=== PATIENT | female | born 1995 | race Hispanic/Latino ===

== ENCOUNTER 2016-09-05 10:35 | Emergency (ER) | payer OTHER ==
[~2016-09-05] VITALS: Ht 157.5 cm; Wt 52.0 kg
[~2016-09-05 10:35] MED LIST: CIPRO; PRENATAL TABLE1 EAC3 PO; PRENATAL VITAM1 EAC3 PO; ROBITUSSIN100 MG/5 M PO; ZOFRAN ODT4 MG PO
[2016-09-05 11:33] LABS: HEMATOCRIT 38.4 % (36.0-46.0); MCH 26.6 PG (29.0-34.0); MCV 82.9 FL (83-99); MEAN PLAT.VOLUME 11.1 uM^3 (9.5-12.4); PLATELET COUNT 294 K/uL (156-360); RBC DIS.WIDTH-CV 12.8 % (11.8-14.6); RBC DIS.WIDTH-SD 38.6 % (39-53); RED BLOOD COUNT 4.63 M/uL (3.80-5.20); WHITE BLOOD COUNT 6.1 K/uL (4.1-10.2)
[2016-09-05 11:49] LABS: CHLORIDE 109 mEq/L (99-109); POTASSIUM 3.8 mEq/L (3.7-5.4); SODIUM 140 mEq/L (136-147)
[2016-09-05 11:51] LABS: GLUCOSE 67 mg/dL (70-99)
[2016-09-05 11:52] LABS: ANION GAP 8 MEQ/L (2-14)
[2016-09-05 11:53] LABS: TOTAL BILIRUBIN 0.5 mg/dL (0.0-1.0)
[2016-09-05 11:54] LABS: ADD MIUA? YES; BILIRUBIN NEGATIVE; BLOOD NEGATIVE; COLOR YELLOW ((YELLOW)); GLUCOSE (STRIP) NEGATIVE; KETONES NEGATIVE; LEUKOCYTES NEGATIVE; NITRITE NEGATIVE; PROTEIN (STRIP) NEGATIVE; SPECIFIC GRAVITY 1.009 (1.000-1.030); UROBILINOGEN 0.2 MG/DL (0.2-1.0)
[2016-09-05 11:55] LABS: ALKALINE PHOSPHATASE 83 IU/L (3-129); GFR ESTIMATE (CALCULATED) > 59 mL/min/
[2016-09-05 11:56] LABS: UREA NITROGEN (BUN) 11 mg/dL (9-23)
[2016-09-05 12:00] LABS: BACTERIA RARE /HPF; EPITHELIAL CELLS 2+ /HPF; MUCUS TRACE /LPF; RED BLOOD CELLS 0-5 /HPF (0-5); UCUL ADDED? NO; WHITE BLOOD CELLS 0-5 /HPF (0-5)
[2016-09-05 12:04] LABS: QUANTITATIVE HCG < 4.0 MIU/ML
[2016-09-05] MEDS ORDERED: ZOFRAN ODT4 MG PO (13:43)
[2016-09-05 13:52] VITALS: BP 126/64
== END 2016-09-05 13:53 | disposition home or self-care (01) ==
LOC: EME 10:35
DX: R10.32 Left lower quadrant pain (principal); R10.12 Left upper quadrant pain
CPT/HCPCS: 74176; 80053; 81003; 84702; 85027; 99281; 99284; J1885

== ENCOUNTER 2016-12-06 15:17 | Emergency (ER) | payer OTHER ==
[~2016-12-06] VITALS: Ht 160 cm; Wt 52.4 kg
[2016-12-06 16:08] LABS: HEMATOCRIT 35.9 % (36.0-46.0); MCH 27.1 PG (29.0-34.0); MCHC 33.7 G/DL (30.0-36.0); MCV 80.3 FL (83-99); MEAN PLAT.VOLUME 11.3 uM^3 (9.5-12.4); PLATELET COUNT 242 K/uL (156-360); RBC DIS.WIDTH-CV 12.7 % (11.8-14.6); RBC DIS.WIDTH-SD 36.4 % (39-53); RED BLOOD COUNT 4.47 M/uL (3.80-5.20)
[2016-12-06 16:29] LABS: TROP-I INTERPRETATION NEGATIVE; TROPONIN-I < 0.01 ng/mL (0.0-0.30)
[2016-12-06 16:39] LABS: CHLORIDE 109 mEq/L (99-109); POTASSIUM 3.2 mEq/L (3.7-5.4); SODIUM 135 mEq/L (136-147)
[2016-12-06 16:41] LABS: GLUCOSE 119 mg/dL (70-99)
[2016-12-06 16:42] LABS: ANION GAP 8 MEQ/L (2-14)
[2016-12-06 16:44] LABS: GFR ESTIMATE (CALCULATED) > 59 mL/min/
[2016-12-06 16:45] LABS: UREA NITROGEN (BUN) 8 mg/dL (9-23)
[2016-12-06 18:31] VITALS: BP 112/70
== END 2016-12-06 18:32 | disposition home or self-care (01) ==
LOC: EME 15:17
PROVIDERS: Emergency Medicine
DX: O99.282 Endocrine, nutritional and metabolic diseases complicating pregnancy, second trimester (principal); E86.0 Dehydration; O26.892 Other specified pregnancy related conditions, second trimester; R06.02 Shortness of breath; R07.9 Chest pain, unspecified; Z3A.15 15 weeks gestation of pregnancy; Z87.891 Personal history of nicotine dependence
CPT/HCPCS: 71275; 80048; 84484; 85027; 99281; 99285; J7030

== ENCOUNTER 2017-03-30 23:58 | Outpatient (CLI) | payer OTHER ==
[2017-03-31] VITALS (10 sets, daily range): BP systolic 92–124; BP diastolic 52–78
[2017-03-31 01:25] LABS: ADD MIUA? NO; BILIRUBIN NEGATIVE; BLOOD NEGATIVE; COLOR STRAW ((YELLOW)); GLUCOSE (STRIP) NEGATIVE; KETONES NEGATIVE; LEUKOCYTES NEGATIVE; NITRITE NEGATIVE; PROTEIN (STRIP) NEGATIVE; SPECIFIC GRAVITY 1.005 (1.000-1.030); UCUL ADDED? NO; UROBILINOGEN 0.2 MG/DL (0.2-1.0)
[2017-03-31 01:26] LABS: EOSINOPHIL (%) 0.9 % (0-5); EOSINOPHIL COUNT 0.1 K/uL (0-0.3); IMMATURE GRANULOCYTE (%) 0.5 % (0.0-0.7); IMMATURE GRANULOCYTE COUNT 0.1 K/uL; INSTRUMENT ABS NEUTROPHIL CT 6.8 K/uL; LYMPHOCYTE COUNT 2.2 K/uL (1.0-2.8); MCH 25.5 PG (29.0-34.0); MCHC 32.3 G/DL (30.0-36.0); MCV 79.1 FL (83-99); MEAN PLAT.VOLUME 11.1 uM^3 (9.5-12.4); MONOCYTE (%) 6.4 % (3-12); MONOCYTE COUNT 0.6 K/uL (0-0.8); NEUTROPHIL (%) 69.8 % (45-76); NEUTROPHIL COUNT 6.8 K/uL (1.8-6.4); PLATELET COUNT 202 K/uL (156-360); RBC DIS.WIDTH-CV 12.7 % (11.8-14.6); RBC DIS.WIDTH-SD 35.7 % (39-53); RED BLOOD COUNT 3.92 M/uL (3.80-5.20); WHITE BLOOD COUNT 9.8 K/uL (4.1-10.2)
[2017-03-31 01:38] LABS: AMPHETAMINE NEGATIVE (500 ng/mL); BENZODIAZEPINES NEGATIVE (150 ng/mL); COCAINE NEGATIVE (150 ng/mL); METHAMPHETAMINE NEGATIVE (500 ng/mL); OPIATES (MORPHINE) NEGATIVE (100 ng/mL); PHENCYCLIDINE NEGATIVE (25 ng/mL); THC CANNABINOIDS NEGATIVE (50 ng/mL); TRICYCLIC ANTIDEPRESSANTS NEGATIVE (300 ng/mL)
[2017-03-31 01:39] LABS: BARBITURATES NEGATIVE (200 ng/mL); INTERNAL CONTROLS VALID? YES; METHADONE NEGATIVE (200 ng/mL); OXYCODONE NEGATIVE (100 ng/mL); PROPOXYPHENE NEGATIVE (300 ng/mL)
[2017-03-31 02:39] LABS: CANDIDA DNA PROBE NEGATIVE; GARDNERELLA DNA PROBE NEGATIVE; INTERNAL CONTROL VALID? YES
[2017-03-31] MEDS ORDERED: NIFEDIPINE10 MG PO (09:05)
[2017-04-02 13:14] LABS: CHLAMYDIA TRACHOMATIS NEGATIVE; NEISSERIA GONORRHOEAE NEGATIVE
== END 2017-03-31 13:12 | disposition home or self-care (01) ==
LOC: LDRP-OP 23:58 → 2WEST 23:59
PROVIDERS: Midwife; Obstetrics & Gynecology Gynecology
DX: O60.03 Preterm labor without delivery, third trimester (principal); Z3A.31 31 weeks gestation of pregnancy
CPT/HCPCS: 59025; 81003; 82731; 85025; 87480; 87491; 87510; 87591; 87660; G0378; J0702; J3105; J7120

== ENCOUNTER 2017-04-19 11:11 | Inpatient (IN) | payer OTHER ==
[2017-04-19] VITALS (10 sets, daily range): BP systolic 111–134; BP diastolic 62–90
[~2017-04-19] VITALS: Ht 157.5 cm; Wt 58.1 kg
[~2017-04-19 11:11] MED LIST changes: +NIFEDIPINE10 MG PO
[2017-04-19 13:15] LABS: EOSINOPHIL (%) 0.9 % (0-5); EOSINOPHIL COUNT 0.1 K/uL (0-0.3); HEMATOCRIT 31.9 % (36.0-46.0); IMMATURE GRANULOCYTE (%) 0.7 % (0.0-0.7); IMMATURE GRANULOCYTE COUNT 0.1 K/uL; INSTRUMENT ABS NEUTROPHIL CT 6.8 K/uL; LYMPHOCYTE COUNT 1.6 K/uL (1.0-2.8); MCH 24.3 PG (29.0-34.0); MCV 78.4 FL (83-99); MEAN PLAT.VOLUME 12.6 uM^3 (9.5-12.4); MONOCYTE (%) 4.3 % (3-12); MONOCYTE COUNT 0.4 K/uL (0-0.8); NEUTROPHIL (%) 75.9 % (45-76); NEUTROPHIL COUNT 6.8 K/uL (1.8-6.4); PLATELET COUNT 178 K/uL (156-360); RBC DIS.WIDTH-SD 37.1 % (39-53); RED BLOOD COUNT 4.07 M/uL (3.80-5.20)
[2017-04-19 13:28] LABS: DRSB INTERNAL CONTROL PASS; PROBE CHECK PASS; SPECIMEN PROCESSING CONTROL PASS
[2017-04-20] MEDS ORDERED: MOTRIN800 MG PO (00:06)
[2017-04-20 00:09] VITALS: BP 120/56
[2017-04-20 00:26] VITALS: BP 120/63
[2017-04-20 00:38] VITALS: BP 124/61
[2017-04-20 00:53] VITALS: BP 122/66
[2017-04-20 07:18] VITALS: BP 126/68
[2017-04-20 15:43] VITALS: BP 107/81
[2017-04-21 07:00] VITALS: BP 101/62
[2017-04-21 15:05] VITALS: BP 120/73
== END 2017-04-21 18:38 | disposition home or self-care (01) | DRG 775 ==
LOC: LDRP-OP 11:11 → 2WEST 11:12 → LDRP-OP 06-28 13:15
PROVIDERS: Nurse Practitioner
DX: O60.14X0 Preterm labor third trimester with preterm delivery third trimester, not applicable or unspecified (principal); Z3A.34 34 weeks gestation of pregnancy; Z37.0 Single live birth
CPT/HCPCS: 85025; 87653; 88307; C1755; J0702; J2540; J7120

== ENCOUNTER 2017-11-09 07:37 | Day surgery (SDC) | payer OTHER ==
[~2017-11-09] VITALS: Ht 158.8 cm; Wt 52.2 kg
[~2017-11-09 07:37] MED LIST changes: +LOESTRIN 1/21 TABLET PO; +MOTRIN800 MG PO; +XANAX0.25 MG PO
[2017-11-09 07:55] VITALS: BP 110/65
[2017-11-09] MEDS ORDERED: ENDOCET 5-3251 EACH PO (09:59)
[2017-11-09] MEDS ORDERED: IBUPROFEN800 MG PO (09:59)
[2017-11-09 13:41] VITALS: BP 127/77
[2017-11-10] MEDS ORDERED: PERCOCET 5/31 TABLET PO (16:37)
== END 2017-11-09 14:05 | disposition home or self-care (01) ==
LOC: SDC
PROC: 0UT74ZZ Resection of Bilateral Fallopian Tubes, Percutaneous Endoscopic Approach (ICD-10-PCS; principal; 2017-11-09)
DX: Z30.2 Encounter for sterilization (principal); F41.9 Anxiety disorder, unspecified
CPT/HCPCS: 88302; 88304; J0131; J1100; J1170; J1200; J1885; J2250; J2405; J2710; J3010; J7643

== ENCOUNTER 2017-11-10 13:47 | Emergency (ER) | payer OTHER ==
[~2017-11-10] VITALS: Ht 157.5 cm; Wt 55.5 kg
[~2017-11-10 13:47] MED LIST changes: +ENDOCET 5-3251 EACH PO; +IBUPROFEN800 MG PO
[2017-11-10 14:21] LABS: HEMATOCRIT 33.3 % (36.0-46.0); HEMOGLOBIN 10.4 G/DL (11.9-15.5); MCH 25.4 PG (29.0-34.0); MCHC 31.2 G/DL (30.0-36.0); MCV 81.2 FL (83-99); NRBC (%) 0.2 /100 WBC (0-0); RBC DIS.WIDTH-CV 13.9 % (11.8-14.6); WHITE BLOOD COUNT 8.6 K/uL (4.1-10.2)
[2017-11-10 14:32] LABS: ALBUMIN 3.6 g/dL (3.2-4.8); CHLORIDE 108 mEq/L (99-109); POTASSIUM 3.4 mEq/L (3.7-5.4)
[2017-11-10 14:33] LABS: SODIUM 141 mEq/L (136-147)
[2017-11-10 14:35] LABS: GLUCOSE 102 mg/dL (70-99); TOTAL PROTEIN 6.2 g/dL (6.4-8.3)
[2017-11-10 14:37] LABS: TOTAL BILIRUBIN 0.3 mg/dL (0.0-1.0)
[2017-11-10 14:38] LABS: ALKALINE PHOSPHATASE 59 IU/L (3-129); CREATININE 0.8 mg/dL (0.6-1.3); GFR ESTIMATE (CALCULATED) > 59 mL/min/
[2017-11-10 14:40] LABS: AST (GOT) 14 IU/L (2-34); UREA NITROGEN (BUN) 7 mg/dL (9-23)
[2017-11-10 14:41] LABS: ALT (GPT) 10 IU/L (3-49)
[2017-11-10 15:03] LABS: HEMATOLOGY COMMENT 1 SN; PLAT.SUFFICIENCY ADEQUATE; PLATELET COUNT 272 K/uL (156-360)
[2017-11-10 15:50] LABS: APPEARANCE CLEAR ((CLEAR)); BILIRUBIN NEGATIVE; BLOOD NEGATIVE; COLOR STRAW ((YELLOW)); GLUCOSE (STRIP) NEGATIVE; KETONES NEGATIVE; LEUKOCYTES NEGATIVE; NITRITE NEGATIVE; PROTEIN (STRIP) NEGATIVE; SPECIFIC GRAVITY 1.006 (1.000-1.030); UCUL ADDED? NO; UROBILINOGEN 0.2 MG/DL (0.2-1.0)
[2017-11-10] MEDS ORDERED: PERCOCET 5/31 TABLET PO (16:37)
[2017-11-10 16:41] VITALS: BP 112/78
== END 2017-11-10 16:46 | disposition home or self-care (01) ==
LOC: EME 13:47
PROVIDERS: Physician Assistant
DX: G89.18 Other acute postprocedural pain (principal); N99.89 Other postprocedural complications and disorders of genitourinary system; F41.9 Anxiety disorder, unspecified; F32.9 Major depressive disorder, single episode, unspecified; F31.9 Bipolar disorder, unspecified; F17.200 Nicotine dependence, unspecified, uncomplicated; Z98.51 Tubal ligation status
CPT/HCPCS: 76856; 80053; 81003; 85027; 86850; 86900; 86901; 99281; 99285

== ENCOUNTER 2017-11-12 15:59 | Emergency (ER) | payer OTHER ==
[~2017-11-12] VITALS: Ht 157.5 cm; Wt 51.2 kg
[~2017-11-12 15:59] MED LIST changes: +PERCOCET 5/31 TABLET PO
[2017-11-12 16:27] VITALS: BP 00/00
[2017-11-12 17:54] LABS: HEMATOCRIT 36.5 % (36.0-46.0); HEMOGLOBIN 11.5 G/DL (11.9-15.5); MCH 25.6 PG (29.0-34.0); MCHC 31.5 G/DL (30.0-36.0); MCV 81.3 FL (83-99); PLATELET COUNT 309 K/uL (156-360); RBC DIS.WIDTH-CV 13.7 % (11.8-14.6); RBC DIS.WIDTH-SD 39.9 % (39-53); RED BLOOD COUNT 4.49 M/uL (3.80-5.20); WHITE BLOOD COUNT 9.1 K/uL (4.1-10.2)
[2017-11-12 18:04] LABS: D-DIMER ELISA < 150.00 ng/mLDDU (<230)
[2017-11-12 18:07] LABS: CHLORIDE 107 mEq/L (99-109); SODIUM 141 mEq/L (136-147)
[2017-11-12 18:08] LABS: GLUCOSE 88 mg/dL (70-99)
[2017-11-12 18:10] LABS: POTASSIUM 4.4 mEq/L (3.7-5.4)
[2017-11-12 18:12] LABS: CREATININE 0.7 mg/dL (0.6-1.3); GFR ESTIMATE (CALCULATED) > 59 mL/min/
[2017-11-12 18:13] LABS: UREA NITROGEN (BUN) 9 mg/dL (9-23)
[2017-11-12 18:15] LABS: TROP-I INTERPRETATION NEGATIVE; TROPONIN-I < 0.01 ng/mL (0.0-0.30)
== END 2017-11-12 19:24 | disposition left against medical advice (07) ==
LOC: RME 15:59 → EME 15:59 → RME 19:24
PROVIDERS: Emergency Medicine
DX: R07.9 Chest pain, unspecified (principal); K66.8 Other specified disorders of peritoneum; Z53.21 Procedure and treatment not carried out due to patient leaving prior to being seen by health care provider; F41.9 Anxiety disorder, unspecified; F31.9 Bipolar disorder, unspecified; Z98.51 Tubal ligation status
CPT/HCPCS: 71046; 80048; 81003; 84484; 85027; 85379; 87086; 93005